=== PATIENT | female | born 1985 | race Caucasian/White ===

== ENCOUNTER 2017-03-13 17:49 | Emergency (ER) | payer OTHER ==
[~2017-03-13] VITALS: Ht 162.6 cm; Wt 50.8 kg
[2017-03-13 17:49] VITALS: BP 115/70
== END 2017-03-13 18:25 | disposition home or self-care (01) ==
LOC: ER 17:57
DX: J02.9 Acute pharyngitis, unspecified (principal)
CPT/HCPCS: 99283; A4606; Z7610